=== PATIENT | female | born 1975 | race Caucasian/White ===

== ENCOUNTER 2019-07-27 08:41 | Emergency (ER) | payer OTHER, SELFPAY ==
--- NOTE | ~2019-07-27 | CT_ITS ---
EXAMINATION: CT brain wo con DATE: 07/27/2019 09:51 INDICATION: Numbness and tingling of the entire body. TECHNIQUE: Computed tomography (CT) of the head was performed without intravenous contrast. The mA wa s adjusted according to patient size. Iterative reconstruction technique was employed. The dose-lengt h product was 605.33 mGy-cm. COMPARISON: None FINDINGS: There is no intracranial hemorrhage, acute infarction, or abnormal intracranial mass lesion . The ventricles are normal in size. The orbits are normal. The paranasal sinuses are clear. The mast oid air cells are normal. IMPRESSION: 1. Normal brain. Reviewed, dictated and finalized at location A. F OF PRODUCTION IMPRESSION: 1. Normal brain.
[2019-07-27 08:47] VITALS: BP 100/89; PULSE 80; RESP 18; TEMP 36.9; O2SAT 100
[2019-07-27 08:51] VITALS: PULSE 80
--- NOTE | 2019-07-27 09:04 | ED.GENADULT ---
HPI - General Adult General Chief complaint: Unspecified <Alma Donovan PA-C - Last Filed: 07/27/19 10:59> Stated complaint: body numbness <Alma Donovan PA-C - Last Filed: 07/27/19 10:59> Time Seen by Provider: 07/27/19 09:03 <Alma Donovan PA-C - Last Filed: 07/27/19 10:59> Source: patient <CRISTHIAN Little Last Filed: 07/27/19 10:59> Mode of arrival: EMS <Alma Donovan PA-C - Last Filed: 07/27/19 10:59> Limitations: no limitations <Alma Donovan PA-C - Last Filed: 07/27/19 10:59> History of Present Illness HPI narrative: Patient is here for evaluation of whole body numbness and tingling. She states that she was hyperventilating today and anxiety when EMS arrived. Patient was out last night with her daughter and states that she drank too much too fast and she feels that this is alcohol related but she was concerned. She said she vomited numerous times this morning, she does not remember the latter part of the evening. She was with her daughter the entire time, she is not concerned for drugs being given to her unknowingly. and she feels confident that she didn't fall and hit her head. She states that all of her symptoms are resolving and she feels much better after some IV fluids from EMS. <Alma Donovan PA-C - Last Filed: 07/27/19 10:59> Onset (ago): hour(s) <Alma Donovan PA-C - Last Filed: 07/27/19 10:59> Treatments prior to arrival: none <CRISTHIAN Little Last Filed: 07/27/19 10:59> Related Data Home medications: Home Medications Medication Instructions Recorded Confirmed aspirin 81 mg tablet,delayed 81 mg PO DAILY 06/03/19 release atorvastatin 20 mg tablet 20 mg PO DAILY 06/03/19 omeprazole 40 mg capsule,delayed 40 mg PO DAILY 06/03/19 release potassium iodide 65 mg tablet 130 mg PO DAILY 06/03/19 <Alma Donovan PA-C - Last Filed: 07/27/19 10:59> Allergies/adverse reactions: Allergies Allergy/AdvReac Type Severity Reaction Status Date / Time No Known Allergies Allergy Verified 07/27/19 08:51 <Alma Donovan PA-C - Last Filed: 07/27/19 10:59> Review of Systems Review of Systems: All systems reviewed & are unremarkable except as noted in HPI and below <Alma Donovan PA-C - Last Filed: 07/27/19 10:59> [facility] Past Medical History Medical History: Medical History Anxiety Depression GERD (gastroesophageal reflux disease) High cholesterol <Alma Donovan PA-C - Last Filed: 07/27/19 10:59> Surgical History Surgical History: Surgical History H/O dilation and curettage H/O tubal ligation <Alma Donovan PA-C - Last Filed: 07/27/19 10:59> Family History Family History: Family History Mother Hypertension Patient's mother is Grandparent Diabetes mellitus Family history of malignant neoplasm of male breast <Alma Donovan PA-C - Last Filed: 07/27/19 10:59> Social History Social History: Social History Smoking status: Never smoker Second hand tobacco smoke exposure: No Alcohol intake: current Gender identity (if verbalized by the patient): Female <Alma Donovan PA-C - Last Filed: 07/27/19 10:59> Exam Const: General: no acute distress and alert <Alma Donovan PA-C - Last Filed: 07/27/19 10:59> Orientation/consciousness: patient oriented x3 <Alma Donovan PA-C - Last Filed: 07/27/19 10:59> HENMT: Head: normal to inspection <CRISTHIAN Little Last Filed: 07/27/19 10:59> Ears: TM's normal bilaterally <CRISTHIAN Little Last Filed: 07/27/19 10:59> General nose exam: Normal nares present <Alma Donovan PA-C - Last Filed: 07/27/19 10:59> Mouth: Yes moist mucous membr
[2019-07-27 10:28] LABS: Basophils Percent Auto 0.2 % (0.2-1.2); Hematocrit 38.1 % (37.0-47.0); Hemoglobin 12.4 g/dL (12.0-15.0); Immature Granulocyte Absolute 0.02 K/mm3 (0.00-0.031); Immature Granulocyte Percent A 0.2 % (0-0.5); Lymphocytes Absolute Auto 1.13 K/mm3 (0.9-3.2); Lymphocytes Percent Auto 13.9 % (18.3-44.2); Mean Corpuscular HGB Conc 32.5 g/dl (32-36); Mean Corpuscular Hemoglobin 29.2 pg (26-34); Mean Corpuscular Volume 89.9 fl (80-100); Mean Platelet Volume 9.4 fl (7.4-10.4); Monocytes Absolute Auto 0.6 K/mm3 (0.1-0.6); Monocytes Percent Auto 6.9 % (2.6-8.5); Neutrophils Absolute Auto 6.4 K/mm3 (1.3-6.7); Neutrophils Percent Auto 78.8 % (45.5-73.1); Platelet Count Result 207 k/mm3 (150-375); Red Blood Count 4.24 M/mm3 (4.2-5.4); Red Cell Distribution Width 12.6 % (11.5-14.5); White Blood Count 8.1 K/mm3 (4.5-10.0)
[2019-07-27 10:41] LABS: Blood Urea Nitrogen 8 mg/dL (7-17); Calcium 8.8 mg/dL (8.4-10.2); Carbon Dioxide 21 mmol/L (22-30); Chloride 105 mmol/L (98-107); Estimated CRCL calculation 92 ml/min; Estimated Glomerular Filt Rate > 60; Glucose 100 mg/dL (65-105); Potassium 3.4 mmol/L (3.4-5.0); Sodium 137 mmol/L (137-145)
[2019-07-27 10:47] LABS: Amphetamine Screen Urine Negative (Negative); Barbiturate Screen Urine Negative (Negative); Benzodiazepines Screen Urine Negative (Negative); Cannabinoid Screen Urine Negative (Negative); Cocaine Screen Urine Negative (Negative); Methadone Screen Urine Negative (Negative); Opiate Screen Urine Negative (Negative); Phencyclidine Screen Urine Negative (Negative)
[2019-07-27 10:51] VITALS: BP 103/70; PULSE 78; RESP 18; O2SAT 100
[2019-07-27 11:04] VITALS: BP 109/65; PULSE 67; RESP 18; O2SAT 100
== END 2019-07-27 11:10 | disposition home or self-care (01) ==
PROVIDERS: Physician Assistant; Emergency Provider Emergency Medicine; PCP Nurse Practitioner Family
DX: E86.0 Dehydration (principal); K21.9 Gastro-esophageal reflux disease without esophagitis; E78.00 Pure hypercholesterolemia, unspecified; Z79.82 Long term (current) use of aspirin
CPT/HCPCS: 36415; 70450; 80048; 80307; 85025; 99284

== ENCOUNTER 2020-12-08 08:52 | Outpatient (CLI) | payer BC, SELFPAY ==
--- NOTE | ~2020-12-08 | MM_ITS ---
EXAMINATION: MM screening [facility] BI w connie HISTORY: Screening mammogram TECHNIQUE: Craniocaudal and mediolateral oblique 3-D tomosynthesis images were obtained and synthetic 2-D images were generated. CAD analysis was submitted and interpreted. COMPARISON: 08/01/2017, 12/09/2013, 03/19/2008 BREAST PARENCHYMAL COMPOSITION: There are scattered areas of fibroglandular density. FINDINGS: RIGHT BREAST: An asymmetry is present in the middle third of the slightly outer breast 4 cm from the nipple on the craniocaudal view. LEFT BREAST: There is no evidence of suspicious mass, calcification, or architectural distortion to s uggest malignancy. There has been no significant interval change. IMPRESSION: 1. Right breast asymmetry. 2. Additional mammographic views and possible breast ultrasound are recommended. BI-RADS Category 0: Incomplete: Needs additional imaging evaluation. Reviewed, dictated and finalized at location A. IMPRESSION: 1. Right breast asymmetry. 2. Additional mammographic views and possible breast ultrasound are recommended . BI-RADS Category 0: Incomplete: Needs additional imaging evaluation.
== END 2020-12-08 08:53 | disposition home or self-care (01) ==
PROVIDERS: PCP Nurse Practitioner Family; Visit Provider Obstetrics & Gynecology
DX: Z12.31 Encounter for screening mammogram for malignant neoplasm of breast (principal); R92.8 Other abnormal and inconclusive findings on diagnostic imaging of breast
CPT/HCPCS: 77063; 77067

== ENCOUNTER 2021-01-06 13:43 | Outpatient (CLI) | payer BC, SELFPAY ==
--- NOTE | ~2021-01-06 | MM_ITS ---
EXAMINATION: MM diagnostic mammo unilat RT HISTORY: Right breast asymmetry on screening mammogram TECHNIQUE: Additional 3-D tomosynthesis images of the right breast were performed and synthetic 2-D i mages were generated. CAD analysis was submitted and interpreted. COMPARISON: 12/08/2020, 08/01/2017, 11/29/2013 BREAST PARENCHYMAL COMPOSITION: There are scattered areas of fibroglandular density. FINDINGS: There is a return to baseline fibroglandular appearance with spot compression of the right breast in the area questioned on screening mammogram. IMPRESSION: 1. No mammographic evidence of malignancy. 2. Recommend routine screening mammography in one year. BI-RADS Category 1: Negative Reviewed, dictated and finalized at location A.
== END 2021-01-06 13:44 | disposition home or self-care (01) ==
LOC: ANHIMG 13:44
PROVIDERS: PCP Nurse Practitioner Family; Visit Provider Obstetrics & Gynecology
DX: R92.8 Other abnormal and inconclusive findings on diagnostic imaging of breast (principal)
CPT/HCPCS: 77065

== ENCOUNTER 2022-03-23 08:49 | Outpatient (CLI) | payer OTHER, SELFPAY ==
--- NOTE | ~2022-03-23 | MM_ITS ---
EXAMINATION: MM screening [facility] BI w connie HISTORY: Screening mammogram TECHNIQUE: Craniocaudal and mediolateral oblique 3-D tomosynthesis images were obtained and synthetic 2-D images were generated. CAD analysis was submitted and interpreted. COMPARISON: 01/06/2021 diagnostic right mammogram 12/08/2020, bilateral screening mammogram examinations BREAST PARENCHYMAL COMPOSITION: There are scattered areas of fibroglandular density. FINDINGS: There is no evidence of suspicious mass, calcification, or architectural distortion to sugg est malignancy in either breast. There has been no suspicious interval change. IMPRESSION: 1. No mammographic evidence of malignancy. 2. Recommend routine screening mammography in one year. BI-RADS Category 1: Negative Reviewed, dictated and finalized at location A.
== END 2022-03-23 08:50 | disposition home or self-care (01) ==
PROVIDERS: PCP Nurse Practitioner Family; Visit Provider Obstetrics & Gynecology
DX: Z12.31 Encounter for screening mammogram for malignant neoplasm of breast (principal)
CPT/HCPCS: 77063; 77067

== ENCOUNTER 2023-08-22 15:42 | Outpatient (CLI) | payer OTHER, SELFPAY ==
--- NOTE | ~2023-08-22 | MM_ITS ---
EXAMINATION: MM screening [facility] BI w connie HISTORY: Screening TECHNIQUE: Craniocaudal and mediolateral oblique 3-D tomosynthesis images were obtained and synthetic 2-D images were generated. CAD analysis was submitted and interpreted. COMPARISON: Comparison to multiple prior studies sequentially, with oldest reviewed study dated 12/09. BREAST PARENCHYMAL COMPOSITION: Not dense: There are scattered areas of fibroglandular density. FINDINGS: There is no evidence of suspicious mass, calcification, or architectural distortion to sugg est malignancy in either breast. There has been no suspicious interval change. IMPRESSION: 1. No mammographic evidence of malignancy. 2. Recommend routine screening mammography in one year. BI-RADS Category 1: Negative Reviewed, dictated and finalized at location A. NT ADMINISTRATOR
== END 2023-08-22 15:43 | disposition home or self-care (01) ==
PROVIDERS: PCP Nurse Practitioner Family; Visit Provider Obstetrics & Gynecology
DX: Z12.31 Encounter for screening mammogram for malignant neoplasm of breast (principal)
CPT/HCPCS: 77063; 77067

== ENCOUNTER 2025-05-16 08:59 | Outpatient (CLI) | payer OTHER, SELFPAY ==
--- NOTE | ~2025-05-16 | MM_ITS ---
EXAMINATION: MM screening cyndi BI w connie HISTORY: Screening TECHNIQUE: Craniocaudal and mediolateral oblique 3-D tomosynthesis images were obtained and synthetic 2-D images were generated. CAD analysis was submitted and interpreted. COMPARISON: Comparison to multiple prior studies sequentially, with oldest reviewed study dated 08/01/2017. BREAST PARENCHYMAL COMPOSITION: Not dense: There are scattered areas of fibroglandular density. FINDINGS: There is no evidence of suspicious mass, calcification, or architectural distortion to suggest malignancy in either breast. There has been no suspicious interval change. IMPRESSION: 1. No mammographic evidence of malignancy. 2. Recommend routine screening mammography in one year. BI-RADS Category 1: Negative Reviewed, dictated and finalized at location O. KER OPERATOR
--- OUTSIDE RECORDS SUMMARY | 2025-05-16 09:07 | XMS_ITS | Clinical Summary ---
Author Organization [facility] Address [address] [place] [id number] Care Team Providers Care Insurance Claims Processor Name Role Phone No, Physician Primary Care Provider [phone] Allergies No known active allergies Medications aspirin 81 mg enteric coated tablet Take 1 tablet (81 mg total) by mouth daily Active atorvastatin (LIPITOR) 20 mg tablet atorvastatin 20 mg tablet TAKE 1 TABLET BY MOUTH IN THE EVENING 06/12/20 19 Active potassium 99 mg tablet Take 1 tablet (99 mg total) by mouth daily Active ergocalciferol (VITAMIN D) 50,000 unit capsule 09/28/19 22 Active fluticasone propionate (FLONASE) 50 mcg/actuation nasal spray fluticasone propionate 50 mcg/actuation nasal spray,suspension Active famotidine (PEPCID) 20 mg tablet Take 1 tablet (20 mg total) by mouth daily Active ALPRAZolam (XANAX) 0.5 mg tablet Take 1 tablet (0.5 mg total) by mouth 3 (three) times a day as needed 02/14/[address] (CYMBALTA) 30 mg capsule TAKE 1 CAPSULE BY MOUTH ONCE DAILY IN THE MORNING 02/14/20 23 Active traZODone (DESYREL) 50 mg tablet 02/21/20 23 Active venlafaxine (EFFEXOR) 75 mg tablet Take 1 tablet (75 mg total) by mouth daily Active ondansetron ODT (ZOFRAN-ODT) 4 mg disintegrating tablet Take 1 tablet (4 mg total) by mouth every 8 (eight) hours as needed for nausea or vomiting 20 tablet 07/10/19 25 Active loperamide (IMODIUM) 2 mg capsule Take 1 capsule (2 mg total) by mouth 4 (four) times a day as needed for diarrhea 12 capsule 07/10/19 25 Active omeprazole (PriLOSEC) 20 mg capsuleIndications :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 Was on PPI daily (omeprazole 40 mg p.o. daily) however earlier this year [employer] insurance [employer] made her switched to famotidine. -we will attempt to obtain prior GI records -we will start omeprazole 20 mg p.o. daily -schedule EGD -The risks (risks of bleeding, infection, perforation requiring surgery, missed polyps/cancer, dental injury, aspiration pneumonia, anesthesia complications such as drug reaction and cardiopulmonary complications including rare chance of ), benefits, and alternatives of the planned procedure were explained to the patient who understands and consents to having procedure done. Screening for colon cancer 03/09/2023 Assessment & Plan (03/09/2023 12:47 PM CDT): No prior colonoscopy. No family history of colon cancer. -schedule colonoscopy -The risks (risks of bleeding, infection, perforation requiring surgery, missed polyps/cancer, dental injury, aspiration pneumonia, anesthesia complications such as drug reaction and cardiopulmonary complications including rare chance of ), benefits, and alternatives of the planned procedure were explained to the patient who understands and consents to having procedure done. Dysphagia 03/09/2023 Assessment & Plan (03/09/2023 12:47 PM CDT): Intermittent dysphagia to solids. Has had an EGD with dilation in the past. -EGD as above Chest pain at rest 10/30/2021 Right thyroid nodule 09/02/2021 Urinary tract infectious disease 11/27/2017 Binge eating disorder 05/11/2017 Hip pain 04/19/2017 Obese 04/19/2017 Plantar fasciitis 04/19/2017 Sciatica 04/19/2017 Acid reflux 10/05/2016 Assessment & Plan (03/09/2023 12:48 PM CDT): Chronic GERD, has been on omeprazole 40 mg p.o. daily up until earlier this year when the insurance company made her switch to famotidine. -start omeprazole 20 mg p.o. daily -continue famotidine p.r.n. -RECOMMENDATIONS given include: anti-reflux maneuvers, Avoid acidic foods like oranges and tomatoes., avoidance of spicy foods, avoid eating 3-4 hours before bed, elevation of the head of the bed, and weight loss Hyperlipidemia 10/05/2016 Vitamin D deficiency 10/05/2016 Surgical History Surgery Date Site/Laterality Comments HERNIA REPAIR UPPER GASTROINTESTINAL ENDOSCOPY Medical History Medical History Date Comments Allergic rhinitis GERD (gastroesophageal reflux disease) High cholesterol Angina at rest Jacques esophagus Dysphagia Depression Anxiety Family History Medical History Relation Name Comments Heart disease Father Cancer Maternal Grandmother Anxiety disorder Mother Depression Mother Heart disease Mother Cancer Paternal Grandmother Relation Name Status Comments Father Maternal Grandmother Mother Paternal Grandmother Social History Tobacco Use Types Packs/Day Years Used Date Smoking Tobacco: Never Smokeless Tobacco: Never Tobacco Cessation:Counseling Given: Not Answered AUDIT-C Answer Date Recorded Q1: How often do you have a drink containing alc ohol? Monthly or less 08/08/2023 Q2: How many drinks containi ng alcohol do you have on a typical day when you are drinking? 1 or 2 08/08/2023 Q3: How often do you have si x or more drinks on one occasion? Never 08/08/2023 Personal Safety Answer Date Recorded Have you ever been in or are you currently in a harmful physical or emotional relationship or is someone making you feel afraid or unsafe? 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[employer] Gender Identity Not on file Sexual Orientation Not on file Last Filed Vital Signs Vital Sign Reading Time Taken Comments Blood Pressure 110/84 07/10/2024 8:39 PM INSPECTOR [employer] Pulse 86 07/10/2024 8:39 PM INSPECTOR [employer] Temperature 36.8 C (98.3 F) 07/10/2024 4:03 PM INSPECTOR [employer] Respiratory Rate 20 07/10/2024 8:39 PM INSPECTOR [employer]LECTRICAL Oxygen Saturation 100% 07/10/2024 8:39 PM INSPECTOR [employer] Inhaled Oxygen Concentration - - Weight 77.1 kg (170 lb) 07/10/2024 4:03 PM INSPECTOR [employer] Height 157.5 cm (5' 2.01) 07/10/2024 4:03 PM CS T Body Mass Index 31.09 07/10/2024 4:03 PM INSPECTOR [employer] Plan of Treatment Health Maintenance Due Date Last Done Comments Breast Cancer Screening-Mammogram 1975 Cervical Cancer Screening 1975 Depression Screening 1975 Hepatitis C Screening 1975 Hepatitis B Screening 1991 Regular Well Visit/Exam 18-64 1991 DTaP/Tdap/Td Vaccine (2 - Td or Tdap) 06/26/2018 06/26/2008 Zoster Vaccine (1 of 2) 2023 Covid-19 Vaccine (3 - 2024-2 6 season) 2025 11/03/2020, 10/06/2020 Influenza Vaccine (#1) 2025 9, 04/19/2017, 03/06/2015 Colon Cancer Screening-Colonoscopy 08/08/2028 08/08/2023 Pneumococcal vaccine <65 Aged Out No longer eligible based on patient's age to complete this topic Procedures Procedure Name Priority Date/Time Associated Diagnosis Comments COLONOSCOPY 08/08/2023 9:48 AM INSPECTOR [employer] from Last 3 Months or Most Recently Relevant to Health Maintenance Results * COLONOSCOPY (08/08/2023 9:48 AM INSPECTOR [employer]LECTRICAL) Anatomical Region Laterality Modality Other Narrative Procedure Note Josh Oakley MD - 08/08/2023 9:48 AM CST [facility] GI ENDOSCOPY Patient Name: Crissy Dnag Procedure Date: 08/08/2023 9:48 AM Date of : 1975 Admit Type: Outpatient Age: 48 Gender: Female Attending MD: Josh Oakley M.D. Room: [facility] ENDOSCOPY ROOM 06 Note Status: Finalized Procedure: Colonoscopy Indications: Screening for colorectal malignant neoplasm Referring MD: KELTON Barth Providers: Josh Oakley M.D. Medicines: Monitored Anesthesia Care Complications: No immediate complications. Estimated Blood Loss: Estimated blood loss: none. Procedure: Pre-Anesthesia Assessment: - Prior to the procedure, a History and Physicalwas performed, and patient medications and allergieswere reviewed. The risks and benefits of the procedureand the sedation options and risks were discussed withthe patient. All questions were answered and informed consent was obtained. Patient identification and proposed procedure were verified. After reviewingthe risks and benefits, the patient was deemed in satisfactory condition to undergo the procedure.The anesthesia plan was to use monitored anesthesiacare (MAC). Immediately prior to administration of medications, the patient was re-assessed foradequacy to receive sedatives. The heart rate, respiratory rate, oxygen saturations, blood pressure, adequacyof pulmonary ventilation, and response to care were monitored throughout the procedure. The physical status of the patient was re-assessed after the procedure. The benefits, risks and alternatives of theprocedure and sedation were discussed and informed consentwas obtained. All questions were answered. Please referto the signed informed consent document in the medical record. The scope was passed under direct vision.The [id number]-[id number] colonoscope was introduced through theanus and advanced to the cecum, identified byappendiceal orifice and ileocecal valve. The colonoscopy was performed without difficulty. The patient tolerated the procedure well. The quality of the bowel preparation was good. Scope withdrawal time was 12 minutes. Prep was administered in a split dose. Findings: The perianal and digital rectal examinations were normal. Two polyps were found in the cecum. The polyps were diminutive insize. These polyps were removed with a cold biopsy forceps. Resection and retrieval were complete. Non-bleeding internal hemorrhoids were found during retroflexion. The hemorrhoids were small. The exam was otherwise without abnormality. Impression: - Two diminutive polyps in the cecum, removed witha cold biopsy forceps. Resected and retrieved. - Non-bleeding internal hemorrhoids. - The examination was otherwise normal. Recommendation: - Patient has a contact number available for emergencies. The signs and symptoms of potential delayed complications were discussed with thepatient. Return to normal activities tomorrow. Written discharge instructions were provided to thepatient. - High fiber diet. - Continue present medications. - Await pathology results. - Repeat colonoscopy in 5 years for surveillance. - Return to GI clinic as previously scheduled. Josh Oakley M.D. Josh Oakley M.D. 08/08/2023 10:25:54 AM . Number of Addenda: 0 Note Initiated On: 08/08/2023 9:48 AM Recognized by the [employer] for promoting quality in endoscopy Josh Oakley MD ENDOSCOPY PROCEDURES Final Resul t from Last 3 Months or Most Recently Relevant to Health Maintenance Insurance [employer] Address: [facility] [id number] [place] [address] [employer] Address: [facility] [id number] [place] [address] Care Teams Insurance Claims Processor Relationship Specialty Start Date End Date No, Physician PCP - General 07/10/24
--- OUTSIDE RECORDS SUMMARY | 2025-05-16 09:07 | XMS_ITS | Encounter Summary ---
Author Organization [facility] Address [facility] [place] [address] Care Team Providers Care Field Marketing Specialist Name Role Phone Erica Quinteros [facility] Primary Care Provider + Encounter Details Date Type Department Care Team (Late st Contact Info) Description 02/03/2021 [facility] [place] [facility] [address] [address] Rodrigue Christian, GRISELDA Social History Tobacco Use Types Packs/Day Years Used Date Smoking Tobacco: Never Smokeless Tobacco: Never Alcohol Use Standard Drinks/Week Comments Yes 0 (1 standard drink = 0.6 oz pur e alcohol) social Comments Unknown Sex and Gender Information Value Date Recorded Sex Assigned at Not on file Legal Sex Female 12:42 PM LICENSED SOCIAL WORKER Gender Identity Not on file Sexual Orientation Not on file Occupation Industry Job Start Date Job End Date RN Not on file Not on file Not on file COVID-19 Exposure Response Date Recorded In the last month, have you been in contact with someone who was confirmed or suspected to have Coronavirus / COVID-19? No / Unsure 02/02/2021 9:55 AM CDT documented as of this encounter Plan of Treatment Not on file documented as of this encounter Procedures Procedure Name Priority Date/Time Associated Diagnosis Comments VITAMIN D, 25 OH Routine 03/18/2020 CBC (OUTSIDE LAB) Routine 03/17/2020 COMPREHENSIVE METABOLIC PANEL Routine 03/17/2020 LIPID PANEL Routine 03/17/2020 THYROID STIM HORMONE TSH Routine 03/17/2020 documented in this encounter Results * VITAMIN D, 25 OH (03/18/2020) Pathologist [facility] VITAMIN D 25 HYDROXY S/P/B 38.7 03/18/2020 us Doc [facility] Abstract LABORATORY Final Result * CBC (OUTSIDE LAB) (03/17/2020) [facility] WBC 4.1 HGB 13.5 HCT 40.0 PLT 214 03/17/2020 us Doc [facility] Abstract LAB-OUTSIDE/ABSTRACTED Final Result * THYROID STIM HORMONE, TSH (03/17/2020) [facility] TSH 0.739 03/17/2020 us Doc [facility] Abstract LABORATORY Final Result * COMPREHENSIVE METABOLIC PANEL (03/17/2020) [facility] SODIUM S/P/B 138 POTASSIUM S/P/B 4.6 CO2 22 CHLORIDE S/P/B 106 GLUCOSE 93 mg/dL CALCIUM S/P/B 9.2 BUN 12 CREATININE S/P/B 0.91 0.5 - 1.0 EGFR AFR. AMER. 88 <=90 EGFR NON-AFR. AMER. 76 <=90 ALKALINE PHOSPHATASE S/P/B 44 ALT 10 AST 12 BILIRUBIN TOTAL S/P/B 1.2 ALBUMIN S/P/B 4.3 3.5 - 5.0 TOTAL PROTEIN S/P/B 6.5 GLOBULIN 2.2 03/17/2020 us Doc [facility] LABORATORY Final Result * LIPID PANEL (03/17/2020) CHOLESTEROL 229 HDL 58 TRIGLYCERIDES 53 LDL (CALCULATED) 162 03/17/2020 us Doc [facility] Abstract LABORATORY Edited Resul t - Final documented in this encounter Visit Diagnoses Not on filedocumented in this encounter Care Teams Field Marketing Specialist Relationship Specialty Start Date End Date Erica Quinteros, MOTTLER OPERATOR- [address] [place] [address] PCP - General NURSE PRACTITIONER 01/05/21 documented as of this encounter
--- OUTSIDE RECORDS SUMMARY | 2025-05-16 09:07 | XMS_ITS | Clinical Summary ---
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 06/13/2019 Active atorvastatin 20 MG tablet Take 20 mg by mouth daily. 06/12/2019 Active aspirin EC (ASPIRIN EC) 81 MG tablet Take 81 mg by mouth daily. Active Potassium Gluconate 595 (99 K) MG Tab Take 99 mg by mouth daily. Active Multiple Vitamin (MULTIVITAMIN ADULT OR) Take 1 tablet by mouth daily. Active Melatonin 10 MG Cap Take 1 capsule by mouth nightly at bedtime. Active Active Problems Problem Noted Date Diagnosed Date Hyperlipidemia Chest pain at rest Immunizations Immunization Administration Dates Next Due Afluria 36 MONTHS+ (Prefilled Syringe IIV4) 03/27 Family History Medical History Relation Comments Heart Attack Brother 1 Stent Cardiac Brother 1 Alcohol Abuse Brother 2 Stent Cardiac Father Stroke Father Cancer Maternal Grandmother Heart Attack Mother Stent Cardiac Mother Alzheimers Paternal Grandmother Relation Status Comments Brother 1 Alive Brother 2 Alive Father (Age 81) Maternal Grandfather (Age 81) Maternal Grandmother (Age 29) Mother (Age 67) Paternal Grandfather (Age 81) Paternal Grandmother (Age 81) Social History Tobacco Use Types Packs/Day Years Used Date Smoking Tobacco: Never Smokeless Tobacco: Never Alcohol Use Standard Drinks/Week Comments Yes 0 (1 standard drink = 0.6 oz pur e alcohol) social Comments Unknown Sex and Gender Information Value Date Recorded Sex Assigned at Not on file 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 Gender Identity Not on file Sexual Orientation Not on file Occupation Industry Job Start Date Job End Date RN Not on file Not on file Not on file Last Filed Vital Signs Vital Sign Reading Time Taken Comments Blood Pressure 110/68 02/02/2021 10:09 AM CDT Pulse 69 02/02/2021 10:09 AM CDT Temperature - - Respiratory Rate - - Oxygen Saturation - - Inhaled Oxygen Concentration - - Weight 66.2 kg (146 lb) 02/02/2021 10:09 AM CDT Height 157.5 cm (5' 2) 02/02/2021 10:09 AM CDT Body Mass Index 26.7 02/02/2021 10:09 AM CDT Plan of Treatment Health Maintenance Due Date Last Done Comments Cervical Cancer Screening Pa p Smear (Age 30 to 64) Every 3 Years 1973 Colorectal Cancer Screening Colonoscopy (10 Years) 1973 Annual Physical 1976 Hepatitis C 1991 DTaP, Tdap and Td Vaccines ( 1 - Tdap) 1992 Hepatitis B Vaccines (1 of 3 - 19+ 3-dose series) 1992 Cervical Cancer Screening Pa p with HPV Testing (Age 30 to 64) Every 5 Years 2003 Cervical Cancer Screening wi HPV 2003 Mammogram Screening 2013 Pneumococcal Vaccine: 50+ Years (1 of 1 - PCV) 2023 Zoster Vaccines (1 of 2) 2023 COVID-19 Vaccine (3 - 2024-2 6 season) 2025 11/03/2020, 10/06/2020 Influenza Adult (#1) 2025 04/18/2019 Hepatitis A Vaccines Aged Out No long er eligible based on patient's age to complete this topic Meningococcal B Vaccine Aged Out No l onger eligible based on patient's age to complete this topic Meningococcal Vaccine Aged Out No abby jeanie eligible based on patient's age to complete this topic RSV Immunizations Under 20 Months Aged Out No longer eligible b ased on patient's age to complete this topic Insurance [facility] Care Teams Run Boat Operator Relationship Specialty Start Date End Date Erica Quinteros, M[employer]IN[employer]- [address] [place] [id number] PCP - General NURSE PRACTITIONER 01/05/21
== END 2025-05-16 09:00 | disposition home or self-care (01) ==
LOC: ANHFOHIMG 09:01
PROVIDERS: PCP Nurse Practitioner Family; Visit Provider Nurse Practitioner Obstetrics & Gynecology
DX: Z12.31 Encounter for screening mammogram for malignant neoplasm of breast (principal)
CPT/HCPCS: 77063; 77067